=== PATIENT | male | born 1985 | race Asian ===

== ENCOUNTER 2019-09-14 06:02 | Day surgery (SDC) | payer OTHER ==
[2019-09-12 15:14] LABS: BASOPHIL % 0.5 % (0-2); PLATELET COUNT 232 x10^3mcL (130-400); RED CELL DISTRIBUTION WIDTH 14.1 % (11.5-14.5)
[2019-09-12 15:20] LABS: CALCIUM 8.9 mg/dL (8.5-10.1); CARBON DIOXIDE 29.6 mmol/L (21-32); CHLORIDE SERUM 105 mmol/L (98-107); CREATININE SERUM 1.1 mg/dL (0.7-1.3); GFR1 > 60 mL/min; GLUCOSE SERUM 119 mg/dL (74-106); POTASSIUM SERUM 3.9 mmol/L (3.5-5.1); SODIUM SERUM 140 mmol/L (136-145)
[~2019-09-14] VITALS: Ht 182.9 cm; Wt 85.3 kg
[2019-09-14 06:23] VITALS: BP 113/55
[2019-09-14 13:41] VITALS: BP 111/73
== END 2019-09-14 12:35 | disposition home or self-care (01) ==
LOC: DS 06:02 → OR 07:30 → DS 07:30
PROVIDERS: Surgery
DX: I83.813 Varicose veins of bilateral lower extremities with pain (principal); F12.90 Cannabis use, unspecified, uncomplicated
CPT/HCPCS: J0690; J1170; J2250; J2704; J3010; J3490; J7120